=== PATIENT | male | born 1985 | race African-American/Black ===

== ENCOUNTER 2016-08-05 08:36 | Emergency (ER) | payer OTHER ==
[~2016-08-05] VITALS: Ht 175.3 cm; Wt 104.3 kg
[2016-08-05 08:42] VITALS: BP 133/91
[2016-08-05] MEDS ORDERED: SULF1TAB24 PO (08:53)
--- NOTE | 2016-08-05 08:53 | PHYS DOC ---
Past Medical History Past Medical History: No Pertinent History Past Surgical History: No Surgical History Alcohol Use: Occasionally Drug Use: None Adult General Chief Complaint Chief Complaint: ABSCESS HPI HPI Patient is a 30 year old male with no significant medical history who presents with right posterior thigh abscess that began a couple days ago. Patient states the fianc opened it yesterday and drained purulent material from it and this morning they noted it had doubled in size. Patient denies any fever. Patient's fiance states they are here for antibiotics. Review of Systems Review of Systems Constitutional: see HPI Eyes: Denies change in visual acuity, redness, or eye pain [] HENT: Denies nasal congestion or sore throat [] : Denies dysuria or hematuria [] Musculoskeletal: Denies back pain or joint pain [] Integument: Right posterior thigh abscess Neurologic: Denies headache, focal weakness or sensory changes [] Endocrine: Denies polyuria or polydipsia [] Allergies Allergies Allergies Coded Allergies Type Severity Reaction Last Updated Verified No Known Drug Allergies 08/05/16 No Physical Exam Physical Exam Constitutional: Well developed, well nourished, no acute distress, non-toxic appearance. [] HENT: Normocephalic, atraumatic, bilateral external ears normal, oropharynx moist, no oral exudates, nose normal. [] Eyes: PERRLA, EOMI, conjunctiva normal, no discharge. [] Abdomen: Bowel sounds normal, soft, no tenderness, no masses, no pulsatile masses. [] Skin: Right mid posterior thigh with an indurated area approximately 2 x 2 centimeter. The area is slightly warm to touch and tender to palpate. There is no fluctuance to the area. The area has slight erythema. There is nothing to drain from the area Back: No tenderness, no CVA tenderness. [] Extremities: No tenderness, no cyanosis, no clubbing, ROM intact, no edema. [] Neurologic: Alert and oriented X 3, normal motor function, normal sensory function, no focal deficits noted. [] Psychologic: Affect normal, judgement normal, mood normal. [] Current Patient Data Vital Signs Vital Signs Date Time Temp Pulse Resp B/P (MAP) Pulse Ox O2 Delivery O2 Flow Rate FiO2 08/05/16 08:42 98.7 82 16 96 Room Air 98.7 EKG EKG [] Radiology/Procedures Radiology/Procedures [] Course & Med Decision Making Course & Med Decision Making Pertinent Labs and Imaging studies reviewed. (See chart for details) Patient has an abscess to the right posterior thigh that they drained yesterday. There is nothing to drain today. His tetanus is up-to-date. Patient' s fiance is in the ED stating they are here to get an antibiotics. This abscess is very small and there is nothing to drain from it today. D/c with Bactrim. Instructed to keep the area clean and dry. Warm compresses recommended to the area. Follow-up with primary care doctor in 1-2 weeks. RN was telling me when she went to discharge patient and the fijuanjo the benita 's response to the prescription for Bactrim was "this is a bullshit antibiotic" the nurse had to talk to them for quite some time reassuring them that Bactrim is a good antibiotic. The nurse tried to find out what their expectations were for antibiotics and they mentioned to the nurse that they wanted IV antibiotics which the nurse told them it's not recommended considering patient has no fever and this is a very small infection. 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 Dragon Disclaimer Dragon Disclaimer This electronic medical record was generated, in whole or in part, using a voice recognition dictation system. Departure Departure Impression: Primary Impression: Abscess Disposition: 01 HOME, SELF-CARE Condition: STABLE Referrals: NO PCP (PCP) MALKA TRACY MD follow up with your doctor in one week Patient Instructions: Abscess, Care After Additional Instructions: You have a abscess that you drained at home. keep the area clean and dry. Apply warm compresses to the area twice a day. Complete your antibiotics. Scripts Sulfamethoxazole/Trimethoprim (BACTRIM DS TABLET) 1 Each Tablet 1 TAB PO BID, #20 TAB Prov: CHAD PEÑA APRN 08/05/16 CHAD PEÑA APRN August 05, 2016 08:53
== END 2016-08-05 09:00 | disposition home or self-care (01) ==
LOC: ER 08:36
DX: L02.415 Cutaneous abscess of right lower limb (principal)
CPT/HCPCS: 99283